=== PATIENT | male | born 1960 | race Caucasian/White ===

== ENCOUNTER 2017-03-16 05:23 | Day surgery (SDC) | payer MEDICAID, OTHER ==
[2017-03-15 09:13] VITALS: BMI 27.5
[~2017-03-16] VITALS: Ht 165.1 cm; Wt 68.6 kg
[2017-03-16] VITALS (10 sets, daily range): BP systolic 113–139; BP diastolic 64–80; PULSE 54–69; RESP 14–29; Ht 165.1 cm; Wt 68.6 kg
[2017-03-16] MEDS ORDERED: SOD CHLORIDE 0.9% 1,000 ML IV SCH (06:00)
[2017-03-16] MEDS ORDERED: CEFAZOLIN 2 GM/50 ML (PMX) 50 ML IVPB ONE (06:00)
[2017-03-16] MEDS ORDERED: BUPIVACAINE 0.25% (MPF) 30 ML INJ ONE (10:29)
[2017-03-16] MEDS ORDERED: FENTAnyl 50 MCG/ML VIAL ONE (10:54)
[2017-03-16] MEDS ORDERED: PROPOFOL 20 ML ONE (11:13)
[2017-03-16] MEDS ORDERED: CEFAZOLIN 1 GM INJ ONE (11:13)
[2017-03-16] MEDS ORDERED: ROCURONIUM 50 MG INJ ONE (11:13)
[2017-03-16] MEDS ORDERED: SUCCINYLCHOLINE CHLORIDE 100 MG/5 ML SYG IV ONE (11:13)
[2017-03-16] MEDS ORDERED: LIDOCAINE 2% (SDV) 5 ML INJ ONE (11:13)
[2017-03-16] MEDS ORDERED: GLYCOPYRROLATE 0.4 MG INJ ONE (11:30)
[2017-03-16] MEDS ORDERED: NEOSTIGMINE 3 MG/3 ML SYRINGE ONE (11:30)
[2017-03-16] MEDS ORDERED: FENTAnyl 50 MCG/ML VIAL IV PRN ×2 (11:30)
[2017-03-16] MEDS ORDERED: HYDROmorphONE (0.2 MG/ML) 10ML SYG IV PRN ×3 (11:30)
[2017-03-16] MEDS ORDERED: MEPERIDINE 25 MG INJ IV PRN (11:30)
[2017-03-16] MEDS ORDERED: DIPHENHYDRAMINE 50 MG INJ IV PRN (11:30)
--- NOTE | 2017-03-16 11:37 | OPR ---
Date/Time of Note Date/Time of Note DATE: 03/16/17 TIME: 11:34 Operative Report Procedure Date: Mar 16, 2017 Preoperative Diagnosis right perianal fistula Postoperative Diagnosis same Operation Performed 1. right perianal fistulectomy and fistulotomy 2. rigid proctoscopy 3. therapeutic injection of subcutaneous marcaine cpt code [id number] Surgeon: Sebastián JOY Specimens right perianal fistula Indications This is a 56-year-old male with a right perianal fistula. He requires surgical repair risks alternatives benefits in personal discussed the patient. Patient expresses understanding since the operation. Procedure Description Patient is taken to the OR and prepped and draped in usual sterile fashion surgical timeout was performed IV antibiotics were given. Rigid proctoscopy was performed no evidence of any masses or lesions. A circular disc tissue around the right perianal fistula is resected using cautery. Using a lacrimal duct probe the fistula tract is identified and caught and cauterized. This performs a fistulotomy and fistulectomy. The surgical site is hemostatic. Local subcutaneous therapeutic anesthesia is injected throughout the wound and surrounding tissues. Dry dressings were applied. Sebastián JOY Mar 16, 2017 11:36
[2017-03-16] MEDS ORDERED: HYDROCODONE/APAP (5/325) TAB PO ONE (12:00)
== END 2017-03-16 12:54 | disposition home or self-care (01) ==
LOC: SDS 05:23
PROVIDERS: ATTEND Surgery
DX: K60.3 Anal fistula (principal); I10 Essential (primary) hypertension
CPT/HCPCS: 46270; 88304; J0690; J2710; J3010; J7999; Z7512; Z7610